=== PATIENT | male | born 1990 | race Caucasian/White ===

== ENCOUNTER 2016-09-24 10:51 | Emergency (ER) | payer BC ==
[2016-09-24 11:04] VITALS: BP 152/82; PULSE 82; RESP 18; TEMP 97.7; O2SAT 94
--- NOTE | 2016-09-24 11:25 | UCPHY ---
H & P Time Seen by Provider: 09/24/16 11:10 Patient Type: New HPI/ROS: CHIEF COMPLAINT: Sinus congestion HISTORY OF PRESENT ILLNESS: 26-year-old otherwise healthy man presents complaining of 4 days of sinus congestion, sinus pain, fatigue and subjective fevers. It is associated with a cough and postnasal drip but he denies any sore throat, hoarseness, dysphagia or odynophagia. He denies any nausea vomiting, chest pain or difficulty breathing. He has had 2 bouts of loose stools. He says he has a headache to the sinus congestion. He has tried taking DayQuil with minimal relief. His just finished treatment for strep throat and he was concerned that he might have this as well. He does not smoke. He is a student. REVIEW OF SYSTEMS: Respiratory: + cough, no dyspnea. Cardiovascular: No chest pain, no palpitations. Gastrointestinal: No vomiting, no abdominal pain. Musculoskeletal: Positive myalgias Smoking Status: Never smoked Physical Exam: General Appearance: Alert and no distress. HEENT: Normocephalic, atraumatic, no sinus tenderness Eyes: Pupils equal and round no injection. Oropharynx. Mild erythema, no tonsillar enlargement or exudate Neck: Supple, full range of motion, no meningismus, no lymphadenopathy Respiratory: Chest is nontender, lungs are clear to auscultation. Cardiac: regular rate and rhythm. Gastrointestinal: Abdomen is soft and nontender, no masses, bowel sounds normal. Musculoskeletal: Neck is supple and nontender. Extremities have full range of motion and are nontender. Skin: No rashes or lesions. Constitutional: Initial Vital Signs Temperature (C) 36.5 C 09/24/16 11:02 Heart Rate 82 09/24/16 11:02 Respiratory Rate 18 09/24/16 11:02 Blood Pressure 152/82 H 09/24/16 11:02 O2 Sat (%) 94 09/24/16 11:02 O2 Delivery Mode Room Air Allergies/Adverse Reactions: No Known Allergies Allergy (Unverified 09/24/16 11:01) Home Medications: Medication Instructions Recorded NK [No Known Home Meds] 09/24/16 Medical Decision Making ED Course/Re-evaluation: Patient presents nontoxic appearing with unremarkable exam and URI symptoms. He was concerned about need for treatment for strep because of his 's recent illness but there is no clinical evidence of strep infection at this time. Patient was given reassurance and we discussed conservative home care measures including pseudophedrine for sinus congestion, use of humidifier, warm drinks with honey and Tylenol ibuprofen as needed. He is discharged home in stable condition. - Data Points Laboratory Results: 09/24/16 09/24/16 Unknown 10:50 Group A Strep Screen NEGATIVE (NEGATIVE) Group A Strep DNA Pending Departure - Departure Clinical Impression: Upper respiratory infection, acute Condition: Good Instructions: Upper Respiratory Infection (ED) Additional Instructions: You were seen by Dr. Christie Rodriguez. Try taking pseudoephedrine for your sinus congestion and using a humidifier at night. Tried hot drinks with honey for cough. Take Tylenol or ibuprofen as needed. Return for any worsening or new problems or concerns. Referrals: NONE *PRIMARY CARE P,. [Primary Care Provider] - As per Instructions - PQRS PQRS Measurement: NA
== END 2016-09-24 11:31 | disposition home or self-care (01) ==
LOC: CED 10:51
DX: J06.9 Acute upper respiratory infection, unspecified (principal)
CPT/HCPCS: 87880-PO; 99203-PO; G0463-PO